=== PATIENT | male | born 1990 | race Caucasian/White ===

== ENCOUNTER 2018-08-23 13:09 | Emergency (ER) | payer OTHER ==
[~2018-08-23] VITALS: Ht 172.7 cm; Wt 83.9 kg
[2018-08-23 13:15] VITALS: Ht 172.7 cm; Wt 83.9 kg
[2018-08-23 14:40] VITALS: BP 144/89
== END 2018-08-23 14:40 | disposition home or self-care (01) ==
LOC: ED 13:09
DX: S02.2XXA Fracture of nasal bones, initial encounter for closed fracture (principal); S01.21XA Laceration without foreign body of nose, initial encounter; Y04.0XXA Assault by unarmed brawl or fight, initial encounter; Y93.89 Activity, other specified; Y92.89 Other specified places as the place of occurrence of the external cause; Y99.8 Other external cause status